=== PATIENT | female | born 1950 | race Caucasian/White ===

== ENCOUNTER 2016-12-07 01:39 | Emergency (ER) | payer MEDICARE ==
[~2016-12-07] VITALS: Ht 170.2 cm; Wt 77.0 kg
[2016-12-07] MEDS ORDERED: HYDR25TA5 PO (01:49)
[2016-12-07 01:50] VITALS: BP 177/97; PULSE 61; RESP 18; TEMP 98.1; O2SAT 99
[2016-12-07] MEDS ORDERED: ATEN25TA PO (01:50)
[2016-12-07 02:00] VITALS: O2SAT 98
[2016-12-07] MEDS ORDERED: SODIUM CHLORIDE 0.9% FLUSH 10 ML FLUSH IVF PRN (02:00)
--- NOTE | 2016-12-07 02:08 | PD ---
HPI Chief Complaint: Chest Pain Time Seen by Provider: 01:56 Travel History International Travel<30 days: No Contact w/Intl Traveler<30days: No Traveled to known affect area: No History of Present Illness HPI The patient is a 66-year-old female with a history of intermittent atrial fibrillation who complained of palpitations beginning around 1:00 this morning. She denies any chest discomfort but did have some shortness of breath. She denies any nausea or diaphoresis. She had numbness in her left arm but this is all resolved. She took an atenolol 25 mg at 0100 this morning. She denies any syncopal or near syncopal spells. The patient comes in because of the palpitations. The patient actually thought that there were PVCs. She has drank well more than her usual amount of tea yesterday. She states she's been under some stress. [facility] Social History Tobacco Use: No Allergies-Medications (Allergen,Severity, Reaction): Coded Allergies: Penicillin (Verified Allergy, Severe, Rash, 12/07/16) Reported Meds & Prescriptions Reported Meds & Active Scripts Active Reported Atenolol 25 Mg Tab 6 Mg PO BID Hydrochlorothiazide 25 Mg Tab 25 Mg PO BID Review of Systems Except as stated in HPI: all other systems reviewed are Neg Physical Exam Narrative GENERAL: The patient is alert, oriented 3 in no apparent distress. Her vital signs show blood pressure 166/79, pulse 60 and initially was irregular O2 saturation 97% on room air respirations are 18. Temperature is 98.1. SKIN: Focused skin assessment warm/dry. No skin rash is seen. HEAD: Atraumatic. Normocephalic. EYES: Pupils equal and round. No scleral icterus. No injection or drainage. ENT: No nasal bleeding or discharge. Mucous membranes pink and moist. NECK: Trachea midline. No JVD. CARDIOVASCULAR: Initial atrial fibrillation rhythm with response rate of 69 which converted fairly quickly to normal sinus rhythm with a rate of 61. No murmur appreciated. RESPIRATORY: No accessory muscle use. Clear to auscultation. Breath sounds equal bilaterally. GASTROINTESTINAL: Abdomen soft, non-tender, nondistended. Hepatic and splenic margins not palpable. MUSCULOSKELETAL: No obvious deformities. No clubbing. No cyanosis. No edema. NEUROLOGICAL: Awake and alert. No obvious cranial nerve deficits. Motor grossly within normal limits. Normal speech. PSYCHIATRIC: Appropriate mood and affect; insight and judgment normal. Data Data Last Documented VS Vital Signs Date Time Temp Pulse Resp B/P Pulse Ox O2 Delivery O2 Flow Rate FiO2 12/07/16 02:00 98 Nasal Cannula 2 12/07/16 01:50 98.1 61 18 177/97 Orders Electrocardiogram (12/07/16 01:56) B-Type Natriuretic Peptide (12/07/16 01:56) Complete Blood Count With Diff (12/07/16 01:56) Comprehensive Metabolic Panel (12/07/16 01:56) Magnesium (Mg) (12/07/16 01:56) Prothrombin Time / Inr (Pt) (12/07/16 01:56) Act Partial Throm Time (Ptt) (12/07/16 01:56) Troponin I (12/07/16 01:56) Ecg Monitoring (12/07/16 01:56) Iv Access Insert/Monitor (12/07/16 01:56) Oximetry (12/07/16 01:56) Oxygen Administration (12/07/16 01:56) Sodium Chloride 0.9% Flush (Ns Flush) (12/07/16 02:00) Labs Laboratory Tests Test 12/07/16 01:55 White Blood Count 7.8 TH/MM3 Red Blood Count 4.98 MIL/MM3 Hemoglobin 14.5 GM/DL Hematocrit 44.8 % Mean Corpuscular Volume 90.0 FL Mean Corpuscular Hemoglobin 29.1 PG Mean Corpuscular Hemoglobin 32.3 % Concent Red Cell Distribution Width 13.3 % Platelet Count 248 TH/MM3 Mean Platelet Volume 9.2 FL Neutrophils (%) (Auto) 46.3 % Lymphocytes (%) (Auto) 46.7 % Monocytes (%) (Auto) 5.1 % Eosinophils (%) (Auto) 1.5 % Basophils (%) (Auto) 0.4 % Neutrophils # (Auto) 3.6 TH/MM3 Lymphocytes # (Auto) 3.7 TH/MM3 Monocytes # (Auto) 0.4 TH/MM3 Eosinophils # (Auto) 0.1 TH/MM3 Basophils # (Auto) 0.0 TH/MM3 CBC Comment DIFF FINAL Differential Comment Prothrombin Time 10.9 SEC Prothromb Time International 1.0 RATIO Ratio Activated Partial 26.5 SEC Thromboplast Time Sodium Level 143 MEQ/L Potassium Level 3.4 MEQ/L Chloride Level 100 MEQ/L Carbon Dioxide Level 28.3 MEQ/L Anion Gap 15 MEQ/L Blood Urea Nitrogen 18 MG/DL Creatinine 0.93 MG/DL Estimat Glomerular Filtration 60 ML/MIN Rate Random Glucose 97 MG/DL Calcium Level 8.9 MG/DL Magnesium Level 2.2 MG/DL Total Bilirubin 0.4 MG/DL Aspartate Amino Transf 22 U/L (AST/SGOT) Alanine Aminotransferase 34 U/L (ALT/SGPT) Alkaline Phosphatase 89 U/L Troponin I LESS THAN 0.02 NG/ML B-Type Natriuretic Peptide 146 PG/ML Total Protein 7.8 GM/DL Albumin 4.2 GM/DL [facility] Medical Decision Making Medical Screen Exam Complete: Yes Emergency Medical Condition: Yes Medical Record Reviewed: Yes Interpretation(s) The EKG taken at 0141 shows atrial fibrillation with response rate of 69 and no other acute change. EKG taken at 0153 shows sinus rhythm with first-degree AV block and rate of 61. No acute changes noted on either EKG. The CBC is normal. The complete metabolic profile shows potassium 3.4, GFR of 60 but is otherwise unremarkable. The troponin I is normal and the BNP is 146. The coagulation profile is normal. Differential Diagnosis Atrial fibrillation, congestive heart failure, electrolyte disorder, acute coronary syndromehighly unlikely, pulmonary embolusextremely unlikely Narrative Course The patient had atrial fibrillation which accounts for the palpitations. This resolved further quickly after she took a 25 mg atenolol tablet at home. It is now 0251 and the patient is in normal sinus rhythm. She is completely asymptomatic at this time. Diagnosis Primary Impression: Intermittent atrial fibrillation Additional Instructions: Contact your primary care physician in [place] and tell him what happened. We will give you the results of the testing done tonight. Disposition: 01 DISCHARGE HOME Condition: Stable Andres Gunter MD Dec 07, 2016 02:07
[2016-12-07 02:15] LABS: AUTOMATED NEUTROPHIL # 3.6 TH/MM3 (1.8-7.7); BASOPHIL % 0.4 % (0.0-2.0); EOSINOPHIL # 0.1 TH/MM3 (0-0.4); EOSINOPHIL % 1.5 % (0.0-4.0); HEMATOCRIT 44.8 % (35.0-46.0); HEMO FLAGS DIFF FINAL; LYMPH % 46.7 % (9.0-44.0); LYMPHOCYTE # 3.7 TH/MM3 (1.0-4.8); MEAN CORPUSCULAR HEMOGLOBIN 29.1 PG (27.0-34.0); MEAN CORPUSCULAR HGB CONC 32.3 % (32.0-36.0); MONO % 5.1 % (0.0-8.0); NEUT % 46.3 % (16.0-70.0); PLATELET COUNT 248 TH/MM3 (150-450); RED BLOOD COUNT 4.98 MIL/MM3 (4.00-5.30); RED CELL DISTRIBUTION WIDTH 13.3 % (11.6-17.2); WHITE BLOOD COUNT 7.8 TH/MM3 (4.0-11.0)
[2016-12-07 02:27] LABS: CHLORIDE 100 MEQ/L (98-107); POTASSIUM 3.4 MEQ/L (3.5-5.1); SODIUM (NA) 143 MEQ/L (136-145)
[2016-12-07 02:30] LABS: ANION GAP 15 MEQ/L (5-15); BICARBONATE 28.3 MEQ/L (21.0-32.0); BLOOD UREA NITROGEN 18 MG/DL (7-18); MAGNESIUM 2.2 MG/DL (1.5-2.5)
[2016-12-07 02:31] LABS: APTT (PATIENT) 26.5 SEC (24.3-30.1); PROTHROMBIN TIME - PATIENT 10.9 SEC (9.8-11.6)
[2016-12-07 02:32] LABS: ALT (GPT) 34 U/L (10-53)
[2016-12-07 02:33] LABS: AST (GOT) 22 U/L (15-37); GLOMERULAR FILTRATION RATE 60 ML/MIN (>89)
[2016-12-07 02:34] LABS: TOTAL BILIRUBIN ADULT 0.4 MG/DL (0.2-1.0)
[2016-12-07 02:36] LABS: ALKALINE PHOSPHATASE 89 U/L (45-117)
[2016-12-07 03:09] VITALS: BP 160/85; TEMP 98.5
--- NOTE | 2016-12-08 23:15 | EKG ---
Date Performed: 12/07/2016 Time Performed: 01:41:10 PTAGE: 66 years EKG: Atrial fibrillation. Anterior ST changes are nonspecific Low QRS voltages in precordial te ds Abnormal ECG NO PREVIOUS TRACING DOCTOR: Carlos Enrique Luke Interpretating Date/Time 12/08/2016 23:13:03
--- NOTE | 2016-12-08 23:15 | EKG ---
Date Performed: 12/07/2016 Time Performed: 01:53:26 PTAGE: 66 years EKG: Sinus rhythm with 1st degree A-V block. Poor R wave progression - probable normal variant Inferior T wave changes are nonspecific Abnormal ECG NO PREVIOUS TRACING DOCTOR: Carlos Enrique Luke Interpretating Date/Time 12/08/2016 23:12:56
== END 2016-12-07 03:32 | disposition home or self-care (01) ==
LOC: PHED 01:39
DX: I48.0 Paroxysmal atrial fibrillation (principal); R00.2 Palpitations
CPT/HCPCS: 80053; 83735; 83880; 84484; 85025; 85610; 85730; 93005